=== PATIENT | female | born 1980 | race Caucasian/White ===

== ENCOUNTER 2019-01-31 06:07 | Day surgery (SDC) | payer BC ==
[2019-01-27 16:31] VITALS: BMI 32.8
[2019-01-31] MEDS ORDERED: Propofol 10 mg/ml Inj (20 ML) ONE (07:20)
[2019-01-31] MEDS ORDERED: Midazolam 2 MG/2 ML VIAL ONE (07:21)
[2019-01-31] MEDS ORDERED: Lidocaine 4% (Laryng-O-Jet) Kit MM ONE (07:22)
[2019-01-31] MEDS ORDERED: ePHEDrine 50 mg/ml Inj ONE (07:22)
[2019-01-31] MEDS ORDERED: Succinylcholine Chloride 20 mg/ml Syr (5 ml) IV ONE (07:22)
[2019-01-31 07:37] LABS: BASO # 0.1 K/uL (0.0-0.2); BASO % 0.9 % (0.0-2.0); EOS # 0.2 K/uL (0.0-0.7); EOS % 3.1 % (0.0-4.0); HEMOGLOBIN 11.4 g/dL (12.0-16.0); LYMPH # 2.2 K/uL (1.0-4.3); LYMPH % 29.9 % (20.0-40.0); MEAN CELL VOLUME 72.5 fl (81.0-99.0); MEAN CORPUSCULAR HEMOGLOBIN 22.7 pg (27.0-31.0); MEAN CORPUSCULAR HGB CONC 31.3 g/dL (33.0-37.0); MEAN PLATELET VOLUME 8.4 fl (7.2-11.7); MONO # 0.6 K/uL (0.0-0.8); MONO % 7.8 % (0.0-10.0); NEUT # 4.3 K/uL (1.8-7.0); NEUT % 58.3 % (50.0-75.0); RED CELL DISTRIBUTION WIDTH 16.4 % (11.5-14.5); WHITE BLOOD COUNT 7.3 K/uL (4.8-10.8)
[2019-01-31] MEDS ORDERED: Silver Nitrate Topical - Stick ONE (07:38)
[2019-01-31] MEDS ORDERED: cefOXitin IV 1 gm in Dextrose 1 GM/50 ML BAG IVPB ONE (07:38)
[2019-01-31] MEDS ORDERED: Lactated Ringer's 1,000 ML IV ONE (07:45)
[2019-01-31] MEDS ORDERED: Dexamethasone 4 mg/1 ml ONE (08:09)
[2019-01-31] MEDS ORDERED: HYDROmorphone 0.5 mg/0.5 ml ISec IVP PRN (08:41)
[2019-01-31] MEDS ORDERED: Lactated Ringer's 1,000 ML IV SCH (08:45)
--- NOTE | 2019-01-31 09:41 | CP.SDSHP ---
Same Day Surgery [facility] & P - Allergies Allergies: Allergies No Known Allergies Allergy (Verified 03/05/15 07:43) - Physical Exam Vital Signs: Vital Signs 01/31/19 01/31/19 06:53 06:57 Temperature 98.2 F Pulse Rate 59 L 59 L Respiratory 18 Rate Blood Pressure 112/79 O2 Sat by Pulse 99 Oximetry Short Stay Discharge - Short Stay Discharge Admitting Diagnosis/Reason for Visit: N92.0 Referrals: Jayson Tucker MD [Primary Care Provider] - Follow-up: 2 wks in office Additional Instructions (Diet, Activity): pelvic and bed rest Progress Note/Discharge Note with Instructions: Recovered well from anesthesia and procedure, discussed findings and procedure performed, and will D/C home this pm when fully recovered Instructions given and rx given and follow up discussed.
[2019-01-31 10:14] VITALS: RESP 18
[2019-01-31 11:30] VITALS: BP 100/72; PULSE 65; TEMP 97.8; O2SAT 99
--- NOTE | 2019-02-03 08:37 | OP ---
PROCEDURE DATE: 01/31/2019 PREOPERATIVE DIAGNOSIS: Severe menorrhagia. POSTOPERATIVE DIAGNOSES: 1. Severe menorrhagia. 2. Pending pathology report. PROCEDURES: Hysteroscopy with MyoSure polypectomy, suction, dilatation and curettage. SURGEON: Jayson Tucker MD ANESTHESIA USED: General endotracheal. ANESTHESIA ADMINISTERED BY: Lisa Reza MD ESTIMATED BLOOD LOSS: 75 ml. DRAINS USED: None. REPLACEMENTS USED: None. FINDINGS: 1. Uterus appears anteverted, mobile, opened, normal size, enlarge, smooth to palpation and sounded to 10 cm. 2. Cervix appears sharp, fingertip, bleeding per os. No gross lesion to visualization. 3. No adnexal masses to palpation bilaterally. 4. Hysteroscopy showed endometrial polyps in the cavity. These were removed under direct visualization using MyoSure technique. 5. Suction, dilatation and curettage performed, moderate amount of tissue obtained and sent to pathology. DESCRIPTION OF PROCEDURE: The patient was taken to the operating room and placed on the operating room table in a supine position. Following induction of general endotracheal anesthesia, the patient was then replaced in a dorsal lithotomy position. Perineum and genital areas were draped and prepped in the usual sterile manner. At this time, sterile catheter was then placed into the bladder and the bladder was emptied of clear fluid. Following this, we then proceeded to examine the patient under anesthesia with some of the above findings. Heavy weighted speculum was then placed in the posterior wall of the vagina exposing the cervix. The anterior lip of the cervix was then grasped, using a single-tooth tenaculum. Using the Milton curette, the endocervical canal was curetted, a minimal amount of tissue obtained and sent to pathology. At this time, the endocervical canal was then dilated using Soto dilators in an increasing size manner. Following this, we then proceeded to introduce a hysteroscope in the endocervical canal and the hysteroscope was then advanced into the endometrial cavity under direct visualization. Couple of endometrial polyps noted to be present, and using MyoSure technique, polypectomy was then performed under direct visualization. Following this, the cavity appeared with no other lesion. At this time, the hysteroscope was then removed under direct visualization and curettage in the endometrial cavity was then performed. Moderate amount of tissue obtained and sent to pathology. Single-tooth tenaculum removed. No bleeding noted. The patient tolerated the procedure well. There were no complications. She was transferred to the recovery room in satisfactory condition. Jayson Tucker MD
== END 2019-01-31 11:50 | disposition home or self-care (01) ==
LOC: H.OPSURG 06:07
PROVIDERS: ATTEND Specialist
DX: N92.0 Excessive and frequent menstruation with regular cycle (principal); N72 Inflammatory disease of cervix uteri; N84.0 Polyp of corpus uteri
CPT/HCPCS: 36415; 58558; 85025; 88305; J0694; J1100; J1885; J2001; J2250; J2405; J2704; J3010; J7030; J7120